=== PATIENT | female | born 1980 | race Hispanic/Latino ===

== ENCOUNTER → 2022-05-06 | Outpatient (CLI) | payer BC | END | disposition home or self-care (01) | LOC: RAH 13:08 | PROVIDERS: ATTEND Obstetrics & Gynecology | DX: Z12.31 Encounter for screening mammogram for malignant neoplasm of breast (principal) | CPT/HCPCS: 77067 ==

== ENCOUNTER → 2024-09-25 | Outpatient (CLI) | payer BC | END | disposition home or self-care (01) | LOC: RAH 12:32 | PROVIDERS: ATTEND Internal Medicine | DX: N20.0 Calculus of kidney (principal) | CPT/HCPCS: 74176 ==